=== PATIENT | male | born 1975 | race Caucasian/White ===

== ENCOUNTER 2019-04-05 20:46 | Observation (INO) ==
[2019-04-05] MEDS ORDERED: NITROGLYCERIN 2% OINT 1 INCH/GM PACK TOP STA (23:05)
[2019-04-05] MEDS ORDERED: ASPIRIN 325 MG TABLET PO STA (23:05)
[2019-04-05] MEDS ORDERED: ONDANSETRON 4 MG/2 ML VIAL IV STA (23:05)
[2019-04-05] MEDS ORDERED: MORPHINE 4 MG/1 ML VIAL IV STA (23:05)
[2019-04-05] MEDS ORDERED: ALUM/MAG/SIMETH/LIDO VISC 1:1 30 ML BOTTLE PO STA (23:05)
[2019-04-05 23:23] LABS: Basophils % 0.4 % (0.0-0.8); Eosinophils # 0.2 10*3/uL (0.0-0.87); Eosinophils % 2.4 % (0.00-10.9); Hematocrit 44.5 VOL% (42.0-52.0); Hemoglobin 15.4 GM/DL (14.0-18.0); Immature Granulocytes % 0.3 %; Immature Granulocytes Absolute 0.02 #; Lymphocytes # 2.2 10*3/uL (1.4-4.0); Lymphocytes % 27.6 % (21.2-54.2); Mean Corpuscular HGB Conc 34.6 GM/DL (32-36); Mean Corpuscular Volume 87.9 FL (87-102); Mean Platelet Volume 10.1 FL (9.6-12.0); Neutrophils % 60.3 % (38.7-73.9); Platelet Count 167 T/CUMM (130-400); Red Blood Count 5.06 MC/CUMM (3.8-5.5); Red Cell Distribution Width 12.6 % (9.3-17.3); White Blood Count 7.8 T/CUMM (4-12)
[2019-04-05 23:33] LABS: INR 0.9
[2019-04-05 23:50] LABS: Albumin 3.9 G/DL (3.4-5.0); Bilirubin,Total 0.4 MG/DL (0.2-1.0); Calcium 8.6 MG/DL (8.5-10.1); Osmolality,Calculated 275.5 MOS/KG (273-304); Total Protein 7.7 G/DL (6.4-8.3)
[2019-04-06] MEDS ORDERED: ENOXAPARIN 120 MG/0.8 ML SYRINGE SUBCUT STA (00:12)
[2019-04-06 00:45] LABS: Apearance,Urine CLEAR (Clear); Bilirubin,Urine Negative (Negative); Blood, Urine Negative (Negative); Glucose,Urine (UA) Negative (Negative); Ketones,Urine Negative (Negative); Nitrite,Urine Negative (Negative); Protein,Urine Negative; RBC,Urine 1 /HPF (0-4); Urine Color Yellow (Yellow); Urine Specific Gravity 1.012 (1.001-1.035); Urine Urobilinogen < 2.0 EU/DL (0.2-1.0); WBC,Urine 3 /HPF (0-6)
[2019-04-06] MEDS ORDERED: ACETAMINOPHEN 325 MG TABLET PO PRN (03:11)
[2019-04-06] MEDS ORDERED: MORPHINE 4 MG/1 ML VIAL IV PRN (03:11)
[2019-04-06] MEDS ORDERED: NITROGLYCERIN SL 0.4 MG TABLET SL PRN (03:11)
[2019-04-06] MEDS ORDERED: ONDANSETRON 4 MG/2 ML VIAL IV PRN (03:11)
[2019-04-06] MEDS ORDERED: DOCUSATE SODIUM 100 MG CAPSULE PO PRN (03:11)
[2019-04-06 06:50] LABS: Risk Ratio 4.3; Thyroid Stimulating Hormone 3.13 uIU/ml (0.358-3.74); VLDL CHOLESTEROL 49.4 MG/DL
[2019-04-06] MEDS ORDERED: ENOXAPARIN 120 MG/0.8 ML SYRINGE SUBCUT SCH (09:00)
[2019-04-06] MEDS ORDERED: ASPIRIN EC 81 MG TABLET PO SCH (09:00)
[2019-04-06] MEDS ORDERED: ATORVASTATIN 10 MG TABLET PO SCH (09:00)
[2019-04-06] MEDS ORDERED: lisinopriL 5 MG TABLET PO SCH (09:00)
[2019-04-06 16:26] VITALS: BP 111/68
== END 2019-04-06 17:06 | disposition home or self-care (01) ==
LOC: EDBD → N.EDINP 20:46 → N.ED 20:46 → N.5E 04-06 02:19 → N.TELEN 04-06 02:21
PROVIDERS: ADMIT Hospitalist; ATTEND Hospitalist